=== PATIENT | female | born 2000 | race Two or more races ===

== ENCOUNTER 2024-09-26 21:34 | Emergency (ER) | payer MEDICAID, SELFPAY ==
[2024-09-26 21:36] VITALS: BMI 24.5
[2024-09-26 21:54] VITALS: BP 111/74; PULSE 78; RESP 20; TEMP 36.9; O2SAT 97
--- NOTE | 2024-09-26 22:03 | EDNOTE_ITS ---
<Statement entered by Shantell Burleson MD - 09/27/24 03:40> As co-signing physician, I was present and available for consult prn. I concur with the plan and care as documented by the midlevel provider. ED Ear RME/HPI General Chief complaint: Ear Stated complaint: LOSS HEARING SINCE SEPTEMBER 04 Time Seen by Provider: 09/26/24 21:48 Arrival date/time: 09/26/24 21:34 RME / HPI RME / HPI Narrative: 24-year-old female patient came in for evaluation regarding bilateral ear congestion. Has been ongoing for several days, already used earwax remover however is not working. Patient denies any ear pain. Patient denies any other complaints. Patient denies any other complaints. No medications taken prior to arrival. Related Data Previous Rx's ?Medication ?Instructions ?Recorded Acetaminophen ER * (TYLENOL ER *) 650 mg PO Q8HR PRN P ain ##20 08/26/14 Allergies Allergy/AdvReac Type Severity Reaction Status Date / Time No Known Allergies Allergy Verified 09/26/24 21:36 Review of Systems Review of Systems Narrative Review of Systems: Review of system reviewed and within normal limits except mentioned in HPI ED Exam Narrative Physical exam: VITAL SIGNS: Reviewed. GENERAL APPEARANCE: Alert and interactive, follows commands, no acute distress, HEAD AND FACE: Non-traumatic. ENT: PERRL, pink conjunctivitis, eyelid no trauma, Mucous membrane moist. Bilateral tympanic membrane no erythema however I noticed some remarks noted. Nontender NECK: Supple, nontender, no nuchal rigidity. CHEST: No tenderness, no crepitus, no paradoxical movement, no retractions. LUNGS: Clear, well ventilated, symmetric, no rales, no wheezing, no ronchi, no stridor, good breath sounds bilaterally. HEART: Regular rate, regular rhythm, no murmur, no gallops. ABDOMEN: Soft, positive bowel sounds, nondistended, no guarding, nontender, no rebound, no masses, RECTAL: Deferred. GENITAL: Deferred. NEUROLOGICAL: Gross motor function intact sensory function intact, Appropriate for age. MUSCULOSKELETAL: low back nontender, full range of motion. EXTREMITIES: Nontender, full range of motion. SKIN: Color pink, dry, no rash, no lacerations, no abrasions, no contusions. LYMPHATICS: Deferred. Course Quality Measures none Orders Category Date Time Status ED Ear Irrigation X1 Care 09/26/24 22:08 Active Vital Signs Vital signs: Vital Signs Temperature 98.5 F 09/26/24 21:54 Pulse Rate 78 09/26/24 21:54 Respiratory Rate 20 09/26/24 21:54 Blood Pressure 111/74 09/26/24 21:54 Pulse Oximetry (%) 97 09/26/24 21:54 Oxygen Delivery Method Room Air 09/26/24 21:54 Ear MDM Narrative MDM Narrative:: 24-year-old female patient came in for evaluation regarding bilateral ear congestion. Has been ongoing for several days, already used earwax remover however is not working. Patient denies any ear pain. Patient denies any other complaints. Patient denies any other complaints. No medications taken prior to arrival. Patient data External records reviewed:: None Clinical information provided by:: patient Social determinants that could affect healthcare access:: none Patient has the following chronic illnesses:: none How is presenting disease/condition affected by chronic disease/condition?: no chronic disease Evaluation data The following diagnostics were reviewed and interpreted by me:: other (specify) Lab and/or radiology exams considered but not ordered:: none Interpretation Summary: none Medications / Prescriptions Medications or Prescriptions considered but not ordered:: none Medication administrations:: none Consultations Consultation(s) initiated? (list below): No Diagnosis Ear Differential Diagnosis: otitis externa, otitis media and other ( Ear Congestion, earwax) Most likely diagnosis given after review of the tests above:: Ear congestion Admission Indicated Admission indicated?: not indicated Admission Request Was there a request for admission?: No Disposition Plan Disposition Plan: Discharge Discharge Attestation Discharge Attestation: The patient was given an opportunity to ask questions and understood the discharge instructions. Discharge instructions specifically effects, indications for sooner follow up or return to the emergency department, and the expected course of current diagnosis. Patient condition: Stable Discharge Plan Plan Patient Disposition: HOME (Self Care) Prescriptions/Referrals Prescriptions/Med Rec: No Action Acetaminophen ER * (TYLENOL ER *) 650 MG TABLET.ER 650 mg PO Q8HR PRN (Reason: Pain) Qty: 20 0RF Problem List Clinical Impression: Congestion of both ears Patient/Caregiver Discharge Instructions Discharge Activity: activity as tolerated Education Materials: Reducing Your Health Risks ... Additional Instructions: Thank you for the opportunity for serving you today. You are stable for discharged . You can take [id number] decongestant as needed Print Language: [place] Stand Alone Forms: Erin Award Info., Patient Portal Info Letter
== END 2024-09-26 23:15 | disposition home or self-care (01) ==
LOC: SERX 22:46
PROVIDERS: Emergency Provider Emergency Medicine
DX: H83.8X3 Other specified diseases of inner ear, bilateral (principal)
CPT/HCPCS: 99281